=== PATIENT | female | born 2000 | race Caucasian/White ===

== ENCOUNTER 2021-01-03 23:35 | Inpatient (IN) ==
[2021-01-04] MEDS ORDERED: PENICILLIN G POTASSIUM 3 MU in DEXTROSE 5% 100 ML IV PRN (00:07)
[2021-01-04] MEDS ORDERED: OXYTOCIN 30 UNITS/500 ML BAG IV PRN ×2 (00:07→06:59)
[2021-01-04] MEDS ORDERED: PENICILLIN G POTASSIUM 6 MU in DEXTROSE 5% 250 ML IV STA (00:12)
[2021-01-04] MEDS: LACTATED RINGER'S 1,000 ML IV PRN ×2 (00:17→01:58)
[2021-01-04] MEDS ORDERED: SODIUM CHLORIDE 0.9% INJ 10 ML VIAL ONE (00:24)
[2021-01-04] MEDS ORDERED: fentaNYL 2MCG/ML ROPIVACAINE 1.25MG/ML 100 ML BAG EPI ONE (00:24)
[2021-01-04] MEDS ORDERED: BUPIVACAINE 0.25% 30 ML VIAL ONE (00:24)
[2021-01-04] MEDS ORDERED: ePHEDrine sulfate 50 MG/ML AMP ONE (00:24)
[2021-01-04] MEDS ORDERED: fentaNYL citrate 100 MCG/2 ML VIAL ONE (00:24)
[2021-01-04 00:33] LABS: Hematocrit (blood only) 29.5 % (37-47); Hemoglobin 9.6 g/dL (12.0-16.0); Mean Corpuscular Hemoglobin 26.7 pg (25-34); Mean Corpuscular Hgb Conc 32.5 g/dL (32-36); Mean Corpuscular Volume 82.2 fL (80-100); Mean Platelet Volume 11.2 fL (7.4-10.4); Platelet Count 214 K/uL (130-400); RDW Coefficient of Variation 15.8 % (11.5-14.5); Red Blood Count 3.59 M/uL (4.2-5.4); White Blood Count 7.91 K/uL (4.8-10.8)
[2021-01-04] MEDS ORDERED: NALOXONE HCL 1 MG in SODIUM CHLORIDE 0.9% 1000ML 1,000 ML IV PRN (01:33)
[2021-01-04] MEDS ORDERED: PROMETHAZINE HCL 6.25 MG in SODIUM CHLORIDE 0.9% 50 ML IV PRN (01:33)
[2021-01-04] MEDS ORDERED: ONDANSETRON INJ 2 MG/ML 2 ML VIAL IV PRN (01:33)
[2021-01-04] MEDS ORDERED: NALOXONE HCL 0.4 MG/1 ML VIAL/CARP IV PRN (01:33)
[2021-01-04] MEDS ORDERED: NALBUPHINE HCL INJ 10 MG/ML AMP IV PRN (01:33)
[2021-01-04] MEDS ORDERED: ePHEDrine sulfate 50 MG/ML AMP IV PRN (01:33)
[2021-01-04] MEDS ORDERED: fentaNYL 2MCG/ML ROPIVACAINE 1.25MG/ML 100 ML BAG EPI PRN (01:33)
[2021-01-04] MEDS ORDERED: diphenhydrAMINE 50 MG/ML VIAL IV PRN (01:33)
--- NOTE | 2021-01-04 01:33 | Anesthesiology Consultation ---
Date of Service January 04, 2021 Assessment & Plan (1) Encounter for pre-operative examination: Chart Review Chart Review: Patient NOT seen in Pre Admission Testing and Acceptable Risk for Labor Epidural Consults Requested none ASA ASA2 Proposed Anesthesia Anesthesia Type: Labor Epidural Risk / Benefits Reviewed With: PT / POA / Parent / Guardian, Accepts Plan and Informed Consent Obtained History Height/Weight Height: 5 ft 1 in Weight: 62.596 kg Allergies Allergy/AdvReac Type Severity Reaction Status Date / Time No Known Allergies Allergy Verified 01/03/21 23:51 Medications Home Medications Medication Instructions Recorded Confirmed Last Taken vit no.95-ferrous 1 tab PO DAILY 07/18/20 01/03/21 01/03/21 08:00 fumarate 28 mg-folic acid 800 mcg tablet () Active Medications Generic Name Dose Route Start Last Admin Trade Name Freq PRN Reason Stop Dose Admin Lactated Ringer's 1,000 mls @ 125 mls/hr 01/04/21 00:07 01/04/21 01:03 Lr IV 01/06/21 00:06 125 mls/hr .Q8H PRN Infusion L&D Protocol Protocol Past Medical History Medical History (Updated 01/04/21 @ 01:33 by Sukumar Coyne MD) No significant past medical history Varicella vaccination Exercise / Class Metabolic Activity II 4-5 Yardwork/Stairs/Walk up hill Past Family History Family History Denies family history of Ovarian cancer Breast cancer Colorectal cancer Past Surgical History Surgical History No significant past surgical history Past Anesthesia History No Hx of Anesthesia Complications and No Family Hx of Anesthesia Complications History of PONV No Hx of PONV and No Hx of Motion Sickness Social History Smoking Status: Never smoker Hx Alcohol Use: No Hx Substance Use: No substance use type: does not use Physical Exam Vital Signs Last Vital Signs Temp 36.9 C 01/03/21 23:51 Pulse 99 H 01/04/21 01:31 Resp 18 01/04/21 01:28 BP 114/68 01/04/21 01:31 Pulse Ox 99 01/04/21 01:28 ENMT Mouth: no dentition abnormality Thyromental Distance: > or= 3.5 Finger Breadths Mallampati Class: II Neck normal visual inspection Respiratory normal respiratory effort Auscultation: lungs clear to auscultation bilaterally Cardiovascular Rate/Rhythm: regular rate and regular rhythm Psychiatric Orientation: alert Testing Laboratory Results 01/04/21 00:22
--- NOTE | 2021-01-04 06:50 | Delivery Summary ---
Vaginal Delivery Summary Date of Service January 04, 2021 Vaginal Delivery Summary and 2nd Degree LAC Primipara arrived in spontaneous labor she progressed from 1 cm to 4 to 5 cm requested epidural membranes ruptured spontaneously on their own she then delivered a baby by pushing a baby in occiput anterior position. Fluid was clear no nuchal cord mouth and then nares suctioned gentle traction no excessive force used live vigorous female cord clamped and cut cord blood obtained placenta removed with gentle traction second-degree tear repaired with 3-0 Vicryl several lateral vulvar repairs as well repaired with 3-0 Vicryl for hemostasis sponge and instrument counts were correct estimated blood loss 300 mL rectal exam negative for defects or sutures [facility] Vaginal Delivery Charge Vaginal Delivery Codes: 80753 global code for the antepartum, delivery, and post- Delivery Type Details: and 2nd Degree LAC
[2021-01-04] MEDS ORDERED: HYDROCORTISONE ACETATE 25 MG SUPP PR PRN (06:59)
[2021-01-04] MEDS ORDERED: ACETAMINOPHEN 325 MG TAB PO PRN (06:59)
[2021-01-04] MEDS ORDERED: oxyCODONE/ACETAMINOPHEN 5mg/325mg TAB PO PRN (06:59)
[2021-01-04] MEDS ORDERED: DIPHTHERIA/TETANUS/PERTUSSIS 0.5 ML SYR/VIAL IM ONE (06:59)
[2021-01-04] MEDS ORDERED: BENZOCAINE 20% AER SPR 82.5 GM CAN EXT PRN (06:59)
[2021-01-04] MEDS ORDERED: SUPERCREAM 0.870% 15 GM JAR EXT PRN (06:59)
[2021-01-04] MEDS: DOCUSATE SODIUM 100 MG CAP PO SCH ×2 (08:18→21:04)
[2021-01-04] MEDS: PRENATAL VITAMIN 1 TAB PO SCH (08:18)
--- NOTE | 2021-01-04 08:29 | Anesthesia Procedure Note ---
Date of Service January 04, 2021 Anesthesia Post Epidural Note Vital Signs Vital Signs: Temp Pulse Resp BP Pulse Ox 37.0 C 88 18 135/85 100 01/04/21 05:19 01/04/21 08:16 01/04/21 06:45 01/04/21 08:16 01/04/21 06:49 Notes Mental Status: alert / awake / arousable and participated in evaluation Nausea / Vomiting: adequately controlled Pain: adequately controlled Airway Patency, RR, SpO2: stable & adequate BP & HR: stable & adequate Hydration State: stable & adequate Neuraxial Anesthesia: was administered and sensory block is resolving Anesthetic Complications: no major complications apparent Epidural: Removed without complications and With tip intact
[2021-01-04] MEDS: IBUPROFEN 600 MG TAB PO PRN ×3 (08:48→21:04)
[2021-01-04] MEDS ORDERED: NON-FORMULARY MEDICATION (Pnv Cmb#95-Ferrous Fumarate-Fa [Prenatal] 28 mg iron- 800 mcg Ta PO SCH (09:00)
[2021-01-05] MEDS: IBUPROFEN 600 MG TAB PO PRN ×3 (03:51→21:49)
[2021-01-05 06:30] LABS: Hematocrit (blood only) 21.8 % (37-47); Hemoglobin 7.1 g/dL (12.0-16.0); Mean Corpuscular Hgb Conc 32.6 g/dL (32-36); Mean Corpuscular Volume 82.9 fL (80-100); Mean Platelet Volume 10.8 fL (7.4-10.4); Nucleated RBC # (auto) 0.02 K/uL (0-0); Nucleated RBC % (auto) 0.2 %; Platelet Count 168 K/uL (130-400); RDW Coefficient of Variation 16.1 % (11.5-14.5); RDW Standard Deviation 48.2 fL (36.4-46.3); Red Blood Count 2.63 M/uL (4.2-5.4); White Blood Count 8.63 K/uL (4.8-10.8)
--- NOTE | 2021-01-05 07:58 | Obstetrical Progress Note ---
Date of Service January 05, 2021 Assessment & Plan 20yo s/p . Doing well. H/H 7.1/ 21.8. Denies anemia symptoms Subjective Ambulation: ambulating normally Voiding: no voiding problems Passing Gas:: Yes Diet Tolerance:: regular diet Lochia:: Moderate Feeding Type:: breast feeding Physical Exam Constitutional WD/WN, vitals as above Respiratory normal respiratory effort; no respiratory distress and no labored breathing Gastrointestinal (Abdomen) Inspection/Auscultation: abdomen normal to inspection; abdomen not distended Percussion/Palpation: abdomen soft; abdomen nontender, no guarding and abdomen not rigid Genitourinary OB Exam Abdomen: + fundal height Fundus: + firm and + relation to umbilicus (Below); not tender or not boggy Results & [facility] ([facility]) Vital Signs (Past 12 Hours) Vital Signs Temp Pulse Resp BP Pulse Ox 01/05/21 03:37 36.6 C 64 16 138/88 98 01/04/21 23:02 36.7 C 70 16 132/72 99
[2021-01-05] MEDS: PRENATAL VITAMIN 1 TAB PO SCH (08:48)
[2021-01-05] MEDS: DOCUSATE SODIUM 100 MG CAP PO SCH ×2 (08:48→21:49)
[2021-01-05] MEDS ORDERED: bisacodyL 5 MG TABEC PO SCH (20:00)
[2021-01-05 22:56] VITALS: O2SAT 97
[2021-01-06] MEDS ORDERED: bisacodyL 10 MG SUPP PR PRN (06:00)
[2021-01-06 06:31] LABS: Hematocrit (blood only) 22.6 % (37-47); Hemoglobin 7.4 g/dL (12.0-16.0)
[2021-01-06] MEDS: PRENATAL VITAMIN 1 TAB PO SCH (08:25)
[2021-01-06] MEDS: DOCUSATE SODIUM 100 MG CAP PO SCH (08:25)
--- NOTE | 2021-01-06 08:36 | Obstetrical Progress Note ---
Date of Service January 06, 2021 Assessment & Plan (1) Encounter for care and examination after delivery: satisfactory course discharge to home f/u 6 weeks Day #:: 2 Subjective Ambulation: ambulating normally Voiding: no voiding problems Diet Tolerance:: regular diet Lochia:: Small Feeding Type:: bottle feeding Review of Systems All systems reviewed & are unremarkable except as noted in HPI & below Physical Exam Constitutional WD/WN, vitals as above Psychiatric A+Ox3, euthymic affect Genitourinary OB Exam Abdomen: + fundal height Fundus: + firm and + relation to umbilicus (1 below U) Results & Data ([facility]) Vital Signs (Past 12 Hours) Vital Signs Temp Pulse Resp BP Pulse Ox 01/05/21 22:54 98.6 F 94 H 16 129/88 97
[2021-01-06 08:49] VITALS: BP 128/84; PULSE 68; TEMP 98.1
== END 2021-01-06 10:40 | disposition home or self-care (01) | DRG 807 ==
LOC: OPB 23:35 → 4S1 23:36 → 4S2 01-04 08:52